=== PATIENT | female | born 1955 ===

== ENCOUNTER 2017-09-03 07:00 | Day surgery (SDC) | payer OTHER ==
[~2017-09-03] VITALS: Ht 149.9 cm; Wt 54.0 kg
[~2017-09-03 07:00] MED LIST: ENALAPRIL MALEA20 MG PO; FOSAMAX70 MG PO
== END 2017-09-04 08:00 | disposition home or self-care (01) ==
LOC: O/R 07:00 → SURG 07:00 → CIR.AMB 07:00 → SURG 09:30 → EDSTATUS 09:30 → SURG 13:33 → O/R 13:33 → CIR.AMB 09-04 08:00 → O/R 09-04 13:51 → SURG 09-04 13:51
DX: D34 Benign neoplasm of thyroid gland (principal); E04.1 Nontoxic single thyroid nodule; I10 Essential (primary) hypertension